=== PATIENT | male | born 1970 | race Caucasian/White ===

== ENCOUNTER 2018-04-29 14:17 | Emergency (ER) | payer OTHER ==
[2018-04-29 14:49] VITALS: BP 145/84
--- NOTE | 2018-04-29 15:09 | UC ---
Complaint Male HPI - HPI Summary HPI Summary: 47 year old male presents with 1 week history of urinary frequency, urgency, and a painful "tingling" sensation when he starts to urinate. Symptoms are associated with general malaise, chills, body aches, and mild left lower abdominal pain. He has noted that his urine stream seems a little weaker and he feels at times as if he is not fully emptying his bladder. Denies fever, URI symptoms, back/flank pain, nausea, vomiting, diarrhea, constipation, testicular pain or swelling, penile discharge, or penile lesions or ulcers. - History of Current Complaint Chief Complaint: UCGU Stated Complaint: URINARY Time Seen by Provider: 04/29/18 14:36 Hx Obtained From: Patient Pain Intensity: 2 - Allergies/Home Medications Allergies/Adverse Reactions: Allergies Allergy/AdvReac Type Severity Reaction Status Date / Time No Known Allergies Allergy Verified 04/29/18 14:35 Home Medications: Home Medications Naproxen Sodium [Aleve] 220 mg PO PRN 04/29/18 [History] PMH/Surg Hx/FS Hx/Imm Hx Previously Healthy: Yes - Denies significant PMH - Surgical History Surgical History: None - Family History Known Family History: Positive: Non-Contributory - Social History Occupation: Employed Full-time Lives: With Family Alcohol Use: Weekly Substance Use Type: None Smoking Status (MU): Current Some Day Smoker Type: Cigarettes Amount Used/How Often: 1 PACK PER WEEK Have You Smoked in the Last Year: Yes Household Exposure Type: Cigarettes Review of Systems All Other Systems Reviewed And Are Negative: Yes Constitutional: Positive: Chills, Fatigue, Other - General malaise. Skin: Negative: Rash Eyes: Negative: Drainage, Eye Redness ENT: Negative: Sore Throat, Ear Ache, Nasal Discharge, Sinus Congestion, Sinus Pain/Tenderness Respiratory: Negative: Shortness Of Breath, Cough Cardiovascular: Negative: Palpitations, Chest Pain Gastrointestinal: Positive: Abdominal Pain - LLQ. Negative: Vomiting, Diarrhea , Nausea Genitourinary: Positive: Dysuria, Frequency, Urgency. Negative: Hematuria, Vaginal/Penile Discharge, Ulceration/Lesion, Other - Testicular pain/swelling Musculoskeletal: Positive: Myalgia Neurological: Positive: Negative Physical Exam - Summary Physical Exam Summary: GENERAL APPEARANCE: Well developed, well nourished, alert and cooperative, and appears to be in no acute distress. CARDIAC: Normal S1 and S2. No S3, S4 or murmurs. Rhythm is regular. There is no peripheral edema, cyanosis or pallor. Extremities are warm and well perfused. Capillary refill is less than 2 seconds. Peripheral pulses intact. LUNGS: Clear to auscultation without rales, rhonchi, wheezing or diminished breath sounds. ABDOMEN: Positive bowel sounds. Soft, nondistended, nontender. No guarding or rebound. No masses or hepatosplenomegally. No CVA tenderness. GENITOURINARY: Normal penis. No lesions or drainage noted. Testicles smooth and non-tender. RECTAL: Patient declined CHRISTINE. MUSKULOSKELETAL: ROM intact to all extremities. No joint erythema or tenderness. Normal muscular development. Normal gait. SKIN: Skin normal color, texture and turgor with no lesions or eruptions. Triage Information Reviewed: Yes Vital Signs: Initial Vital Signs Temp 97.9 F 04/29/18 14:37 Pulse 72 04/29/18 14:37 Resp 20 04/29/18 14:37 BP 145/84 04/29/18 14:37 Pulse Ox 98 04/29/18 14:37 Vital Signs Reviewed: Yes Diagnostics - Laboratory Diagnostic Studies Completed/Ordered: POC UA normal. Urine culture and gram stain pending. Complaint Male Course/Dx - Course Course Of Treatment: 47 year old male presents with 1 week history of urinary frequency, urgency, and a painful "tingling" sensation when he starts to urinate. Symptoms are associated with general malaise, chills, body aches, and mild left lower abdominal pain. He has noted that his urine stream seems a little weaker and he feels at times as if he is not fully emptying his bladder. Denies fever, URI symptoms, back/flank pain, nausea, vomiting, diarrhea, constipation, testicular pain or swelling, penile discharge, or penile lesions or ulcers. Afebrile. VSS. Exam reveals an adult male in no acute distress with an overall unremarkable exam. He declined to have a CHRISTINE. POC UA showed no evidence of infection but based on his history I am concerned for an acute prostatitis. Urine culture and gram stain were sent. I am starting him on Bactrim DS 1 tab BID x 2 weeks. He is to follow up with his primary care provider within 2 weeks for recheck of symptoms. I stressed to him that follow up was essential as his antibiotic course may need to be extended for full treatment of the prostatitis. Anticipatory guideance and warning symptoms were reviewed with the patient. Verbalizes understanding an agrees with POC. - Differential Dx/Diagnosis Differential Diagnosis/HQI/PQRI: Prostatitis, Pyelonephritis, Urinary Tract Infection Provider Diagnosis: Prostatitis, acute Discharge - Sign-Out/Discharge Documenting (check all that apply): Patient Departure All imaging exams completed and their final reports reviewed: No Studies - Discharge Plan Condition: Stable Disposition: HOME Prescriptions: Sulfamethox/Trimethoprim DS* [Bactrim DS 800/160 TAB*] 1 tab PO BID 14 Days #28 tab Patient Education Materials: Prostatitis (ED) Referrals: No Primary Care Phys,NOPCP [Primary Care Provider] - Additional Instructions: Your urine test in performed in the clinic today did not show any evidence of infection however based on your history and exam I am concerned that you may have an bacterial prostatitis. We will send the urine for culture and gram stain and start you on an antibiotic. We will contact you if the culture or gram stain suggest we need to change your plan of care. Start Bactrim DS 1 tablet twice a day for 14 days. Be sure to complete the entire course even if you are feeling better. Follow up with your primary care provider within 2 weeks for recheck of your symptoms. Seek immediate medical attention in the emergency room if you develop fever greater than 100.5 F, have severe abdominal pain, projectile or persistent vomiting, testicular pain or swelling, you are unable to urinate, or have any worsening of symptoms. - Billing Disposition and Condition Condition: STABLE Disposition: Home
== END 2018-04-29 15:34 | disposition home or self-care (01) ==
LOC: UCCORT 14:17
DX: N41.0 Acute prostatitis (principal); F17.210 Nicotine dependence, cigarettes, uncomplicated
CPT/HCPCS: 81003; 87086; 87205; 99202; G0463